=== PATIENT | male | born 1965 | race Caucasian/White ===

== ENCOUNTER 2016-11-22 17:52 | Emergency (ER) | payer SELFPAY ==
[~2016-11-22] VITALS: Ht 172.7 cm; Wt 105.0 kg
[2016-11-22 18:01] VITALS: Ht 172.7 cm; Wt 105.0 kg
[2016-11-22 19:45] LABS: ADD SCAN DIFF NO
[2016-11-22 19:47] LABS: EOSINOPHILS # 0.2 10^3/ul (0.0-0.5); EOSINOPHILS % 3.8 % (0.0-7.0); HEMATOCRIT 47.4 % (42.0-52.0); HEMOGLOBIN 16.8 g/dl (14.0-18.0); LYMPHOCYTES % 33.3 % (15.0-51.0); MEAN CORPUSCULAR HEMOGLOBIN 34.1 pg (29.0-33.0); MEAN CORPUSCULAR HGB CONC 35.4 g/dl (32.0-37.0); MEAN CORPUSCULAR VOLUME 96.3 fl (82.0-101.0); MEAN PLATELET VOLUME 10.9 fl (7.4-10.4); MONOCYTE # 0.6 10^3/ul (0.3-0.9); MONOCYTES % 10.4 % (0.0-11.0); NEUTROPHIL # 3.1 10^3/ul (1.6-7.5); NEUTROPHILS % 52.2 % (39.0-77.0); PLATELET COUNT 218 10^3/UL (140-415); RED BLOOD COUNT 4.92 10^6/ul (4.70-6.10); RED CELL DISTRIBUTION WIDTH 13.2 % (11.5-14.5)
[2016-11-22 19:53] LABS: ADD UMIC NO; URINE BILIRUBIN (Dip) NEGATIVE (NEGATIVE); URINE BLOOD (Dip) NEGATIVE (NEGATIVE); URINE COLOR LT. YELLOW (YELLOW); URINE GLUCOSE (Dip) NEGATIVE (NEGATIVE); URINE KETONES (Dip) TRACE (NEGATIVE); URINE LEUKOCYTE ESTERASE (Dip) NEGATIVE (NEGATIVE); URINE NITRITE (Dip) NEGATIVE (NEGATIVE); URINE TOTAL PROTEIN (Dip) NEGATIVE (NEGATIVE); URINE UROBILINOGEN (Dip) 0.2 E.U./dL (0.1-1.0)
--- NOTE | 2016-11-22 19:57 | RADRPT ---
PROCEDURE: CT Abdomen and Pelvis without contrast. CLINICAL INDICATION: Abdominal pain TECHNIQUE: CT of the abdomen and pelvis was performed on a multi-detector scanner without IV contr ast. Coronal and sagittal images were reformatted from the axial data set. One or more of the foll owing dose reduction techniques were used: automated exposure control, adjustment of the mA and/or kV according to patient size, use of iterative reconstruction technique. CTDI = 20.1 mGy. DLP = 133 6.54 mGy-cm. COMPARISON: None. FINDINGS: CT abdomen: The lung bases are clear. The heart size is normal, without pericardial effusion. The liver is fat ty infiltrated, without evidence of focal mass. Gallbladder, biliary tree, pancreas, spleen, adrenal glands and kidneys are unremarkable. No urolithiasis or obstructive uropathy is identified. The s tomach is grossly unremarkable. The aorta is of normal caliber. There is no retroperitoneal lymphadenopathy. The laina hepatis reg ion is clear. CT pelvis: No bowel obstruction, free intraperitoneal air or abscess is identified. There is no diverticulosis , diverticulitis or colitis. The appendix is well visualized and normal. Urinary bladder is grossl y unremarkable. No pelvic mass, free fluid or lymphadenopathy is identified. The surrounding osseous structures are remarkable for mild degenerative spondylosis of the spine. N o osteolytic or osteoblastic lesion is detected. IMPRESSION: 1. Hepatic steatosis is noted. 2. No mass, lymphadenopathy, or focal acute inflammatory process is identified. RPTAT: VV .Cristhian Kessler MD, Date Time Electronically viewed and signed by .Cristhian Kessler MD, on 11/22/2016 19:57 .R/
[2016-11-22] MEDS ORDERED: KETOROLAC 30 MG INJ IV STA (20:05)
[2016-11-22] MEDS ORDERED: POLY17PO6 PO (20:06)
[2016-11-22] MEDS ORDERED: TRAM-40 PO (20:06)
[2016-11-22 20:18] LABS: ALBUMIN 4.9 g/dl (3.3-4.9); ALBUMIN/GLOBULIN RATIO 1.48; BILIRUBIN,INDIRECT 0.2 mg/dl (0-1.1); BILIRUBIN,TOTAL 0.2 mg/dl (0.2-1.3); CALCIUM 9.3 mg/dl (8.4-10.2); CREATININE 1.06 mg/dl (0.61-1.24); POTASSIUM 4.1 mmol/L (3.5-5.1); TOTAL PROTEIN 8.2 g/dl (6.1-8.1)
--- NOTE | 2016-11-22 20:29 | ERD ---
ER Documentation Chief Complaint Date/Time DATE: 11/22/16 TIME: 20:28 Chief Complaint Complains of abdominal pain x 3 days HPI This 42-year-old male complains of left lower quadrant abdominal pain for last 3 days. He denies any fevers, vomiting, shortness of breath or chest pain. He says he might have a history of constipation. Denies any urinary complaints. ROS All systems reviewed and are negative except as per history of present illness. Medications Home Meds Active Scripts Tramadol Hcl* (Ultram*) 50 Mg Tablet, 50 MG PO Q6H Y for PAIN, #20 TAB Prov:ROME CACERES MD 11/22/16 Polyethylene Glycol* (Miralax*) 17 Gm Powd.pack, 17 GM PO DAILY, #30 PACKET Prov:ROME CACERES MD 11/22/16 Allergies Allergies: Coded Allergies: No Known Allergy (Unverified , 11/22/16) PMhx/Soc Medical and Surgical Hx: pt denies Medical Hx, pt denies Surgical Hx Hx Alcohol Use: Yes Hx Substance Use: No Hx Tobacco Use: No Smoking Status: Never smoker Physical Exam Vitals Vital Signs Date Time Temp Pulse Resp B/P Pulse Ox O2 Delivery O2 Flow Rate FiO2 11/22/16 18:01 97.0 84 20 143/90 97 Physical Exam Const: [], [id number]. Head: Atraumatic Eyes: Normal Conjunctiva ENT: Normal External Ears, Nose and Mouth. Neck: Full range of motion..~ No meningismus. Resp: Clear to auscultation bilaterally Cardio: Regular rate and rhythm, no murmurs Abd: Soft, mild tenderness in the left lower quadrant without rebound. No tenderness at McBurney's point no Hatfield sign., non distended. Normal bowel sounds Skin: No petechiae or rashes Back: No midline or flank tenderness Ext: No cyanosis, or edema Neur: Awake and alert Psych: Normal Mood and Affect Result Diagram: 11/22/16192411/22/161924 Results 24 hrs Laboratory Tests Test 11/22/16 19:25 White Blood Count 6.010^3/ul Red Blood Count 4.9210^6/ul Hemoglobin 16.8g/dl Hematocrit 47.4% Mean Corpuscular Volume 96.3fl Mean Corpuscular Hemoglobin 34.1pg Mean Corpuscular Hemoglobin Concent 35.4g/dl Red Cell Distribution Width 13.2% Platelet Count 57214^3/UL Mean Platelet Volume 10.9fl Neutrophils % 52.2% Lymphocytes % 33.3% Monocytes % 10.4% Eosinophils % 3.8% Basophils % 0.0% Nucleated Red Blood Cells % 0.0/100WBC Neutrophils # 3.110^3/ul Lymphocytes # 2.010^3/ul Monocytes # 0.610^3/ul Eosinophils # 0.210^3/ul Basophils # 0.010^3/ul Nucleated Red Blood Cells # 0.010^3/ul Urine Color LT. YELLOW Urine Clarity CLEAR Urine pH 5.5 Urine Specific [place] 1.025 Urine Ketones TRACE Urine Nitrite NEGATIVE Urine Bilirubin NEGATIVE Urine Urobilinogen 0.2 E.U./dL Urine Leukocyte Esterase NEGATIVE Urine Hemoglobin NEGATIVE Urine Glucose NEGATIVE% Urine Total Protein NEGATIVE Sodium Level 143mmol/L Potassium Level 4.1mmol/L Chloride Level 104mmol/L Carbon Dioxide Level 27mmol/L Anion Gap 16 Blood Urea Nitrogen 22mg/dl Creatinine 1.06mg/dl Glucose Level 107mg/dl Calcium Level 9.3mg/dl Total Bilirubin 0.2mg/dl Direct Bilirubin 0.00mg/dl Indirect Bilirubin 0.2mg/dl Aspartate Amino Transf (AST/SGOT) 54IU/L Alanine Aminotransferase (ALT/SGPT) 87IU/L Alkaline Phosphatase 104IU/L Total Protein 8.2g/dl Albumin 4.9g/dl Globulin 3.30g/dl Albumin/Globulin Ratio 1.48 Lipase 99U/L Current Medications Medications (Trade) Dose Ordered Sig/Sarah Route PRN Reason Start Time Stop Time Status Last Admin Dose Admin Ketorolac Tromethamine (Toradol) 30 mg ONCE STAT IV 11/22/16 20:05 11/22/16 20:06 DC 11/22/16 20:14 Procedures/MDM Patient presents with left lower quadrant abdominal pain of uncertain etiology. Concern is for diverticulitis. An IV was obtained. CBC is normal. CMP is normal. Urine is negative for infection, hemoglobin or glucose. CT abdomen pelvis noncontrast was read as normal by the radiologist. Patient given Toradol 30 mg IV. Patient is uncertain etiology of his left lower quadrant pain. There is no evidence of abscess, obstruction, acute abdomen, appendicitis. He will be treated treated for constipation and further observation at home. The patient was stable with no new complaints during the ER course. Clinically, there is no current evidence to suggest meningitis, sepsis, acute abdomen, pneumonia, acute coronary syndrome, pulmonary embolism, or any other emergent condition appearing to require further evaluation or hospitalization. The patient should certainly return for any new or worsening symptoms per the aftercare instructions. They should otherwise follow-up with her primary care doctor for reevaluation this week. Departure Diagnosis: Primary Impression: Abdominal pain Abdominal location: left lower quadrant Qualified Code: R10.32 - Left lower quadrant pain Patient Instructions: Abdominal Pain, Constipation (Adult) Additional Instructions: Examines normal hoy. Cheque otro vez con charles doctor primario en el proximo stevens or regresa para mas o nueva simptomas. ROME CACERES MD Nov 22, 2016 20:29
[2016-11-22 21:03] VITALS: BP 121/74; PULSE 88; RESP 18
== END 2016-11-22 21:04 | disposition home or self-care (01) ==
LOC: FTE 17:52
DX: R10.32 Left lower quadrant pain (principal)
CPT/HCPCS: 74176; 80053; 81003; 83690; 85025; J1885; 36415; 96374